=== PATIENT | female | born 1970 | race Caucasian/White ===

== ENCOUNTER 2018-01-09 13:42 | Emergency (ER) | payer MEDICAID ==
[~2018-01-09] VITALS: Ht 172.7 cm; Wt 83.8 kg
[2018-01-09] MEDS ORDERED: KETOROLAC 30 MG/1 ML IM ONE (15:30)
[2018-01-09] MEDS ORDERED: DIAZEPAM 5 MG TABLET PO ONE (15:30)
[2018-01-09] MEDS ORDERED: DIAZEPAM 5 MG TABLET ONE (15:33)
[2018-01-09] MEDS ORDERED: KETOROLAC 30 MG/1 ML ONE (15:33)
[2018-01-09 17:11] LABS: MICROSCOPIC NOT IND
[2018-01-09 17:17] LABS: CULTURE INDICATED? NO
[2018-01-09 17:45] VITALS: BP 162/88
== END 2018-01-09 17:47 | disposition home or self-care (01) ==
LOC: ED 17:40
DX: S39.012A Strain of muscle, fascia and tendon of lower back, initial encounter (principal); N20.2 Calculus of kidney with calculus of ureter; X58.XXXA Exposure to other specified factors, initial encounter; Y93.89 Activity, other specified; Y92.89 Other specified places as the place of occurrence of the external cause; Y99.8 Other external cause status
CPT/HCPCS: 72110; 74176; 81003; 96372; 99285; J1885

== ENCOUNTER 2018-03-07 16:16 | Emergency (ER) | payer MEDICAID ==
[~2018-03-07] VITALS: Ht 167.6 cm; Wt 83.9 kg
--- NOTE | 2018-03-07 16:58 | NUR ---
TO ROOM FROM LOBBY. NAD.
--- NOTE | 2018-03-07 17:10 | NUR ---
Pt ambulates to room from lobby with steady gait and balance. Pt changed in to hospital gown and provided warm blankets for comfort measures.
--- NOTE | 2018-03-07 17:13 | NUR ---
PT STATES, "TODAY I WAS CLEANING HOUSE AND I WENT TO THE BATHROOM AND WHEN I WIPED I SAW SOME BLOOD. MY LAST PERIOD WAS THE END OF JANUARY AND FIRST WEEK OF FEBRUARY. I RECENTLY HAVE BEEN SEEN BY MY DOCTOR FOR LOWER BACK PAIN. I HAD MY SON IN LAW WALK ON MY BACK TODAY TO HELP WITH MY BACK PAIN. IT DIDN'T HELP. I HAD A TUBAL LIGATION SIX YEARS AGO. I AM NOT SEXUALLY ACTIVE." NADN. PT CONNECTED TO NIBP AND CONTINOUS PULSE OX. ALL SAFETY MEASURES IN PLACE AND CALL LIGHT WITHIN REACH OF PT.
[2018-03-07] MEDS ORDERED: KETOROLAC 30 MG/1 ML ONE (17:35)
--- NOTE | 2018-03-07 17:40 | NUR ---
PT STATES 8/10 LOWER BACK PAIN. PROVIDED MEDICATION PER EMAR FOR PAIN CONTROL. PT APPRECIATIVE.
[2018-03-07 17:41] LABS: MICROSCOPIC AUTO
[2018-03-07 17:42] LABS: CULTURE INDICATED? YES
[2018-03-07] MEDS ORDERED: KETOROLAC 30 MG/1 ML IM ONE (18:00)
[2018-03-07 18:25] VITALS: BP 159/85
--- NOTE | 2018-03-07 18:42 | NUR ---
ED MD AT BEDSIDE EXPLAINING HOME CARE EDUCATION TO PT. PT STATES VERBAL UNDERSTANDING. NO QUESTIONS ASKED FROM PT AT THIS TIME. PROVIDED PT DISCHARGE PAPERWORK. PT STATED VERBAL UNDERSTANDING. PT CHANGING INTO CLOTHES AT THIS TIME.
--- NOTE | 2018-03-07 18:43 | NUR ---
Patient given discharge instructions and they have confirmed that they understand the instructions. Patient ambulatory with steady gait. PT LEFT WITH ALL PERSONAL BELONGINGS.
== END 2018-03-07 18:44 | disposition home or self-care (01) ==
LOC: ED 17:57
DX: R31.29 Other microscopic hematuria (principal)
CPT/HCPCS: 81001; 87086; 96372; 99283; J1885

== ENCOUNTER 2018-09-22 21:30 | Emergency (ER) | payer MEDICAID ==
[~2018-09-22] VITALS: Ht 172.7 cm; Wt 79.5 kg
[2018-09-22 21:36] VITALS: BP 146/98
[2018-09-22] MEDS ORDERED: KETOROLAC 30 MG/1 ML ONE (21:56)
[2018-09-22] MEDS ORDERED: KETOROLAC 60 MG/2 ML IM ONE (22:00)
== END 2018-09-22 22:41 | disposition home or self-care (01) ==
LOC: ED 22:35
DX: S93.401A Sprain of unspecified ligament of right ankle, initial encounter (principal); S90.01XA Contusion of right ankle, initial encounter; W22.09XA Striking against other stationary object, initial encounter; Y93.89 Activity, other specified; Y92.89 Other specified places as the place of occurrence of the external cause; Y99.8 Other external cause status
CPT/HCPCS: 73610; 96372; 99283; J1885

== ENCOUNTER 2019-08-06 15:07 | Emergency (ER) | payer MEDICAID ==
[~2019-08-06] VITALS: Ht 172.7 cm; Wt 88.2 kg
[2019-08-06 15:30] VITALS: BP 156/98
[2019-08-06] MEDS ORDERED: DIPH,PERTUSS(ACELL),TET VAC/PF 0.5 ML IM-VACC ONE ×2 (16:00→17:12)
--- NOTE | 2019-08-06 16:58 | NUR ---
TO JOSE FROM LOBBY
[2019-08-06] MEDS ORDERED: NEOSPORIN OINT. PKT 1 PACKET ONE (17:13)
--- NOTE | 2019-08-06 17:24 | NUR ---
Pt here for left arm cat bite, pt reports it was her indoor cat and no issues. Pt reports painful to touch. Pt wound marked and instructions reviewed. Pt informed to pick abx.
--- NOTE | 2019-08-06 17:25 | NUR ---
Patient/Caregiver given discharge instructions and they have confirmed that they understand the instructions. Patient ambulatory with steady gait.
== END 2019-08-06 17:28 | disposition home or self-care (01) ==
LOC: ED 17:15
DX: S61.552A Open bite of left wrist, initial encounter (principal); W55.01XA Bitten by cat, initial encounter; Y93.89 Activity, other specified; Y92.098 Other place in other non-institutional residence as the place of occurrence of the external cause; Y99.8 Other external cause status
CPT/HCPCS: 90471; 90715; 99283